=== PATIENT | male | born 1990 | race Caucasian/White ===

== ENCOUNTER 2018-08-14 18:03 | Emergency (ER) | payer OTHER ==
[2018-08-14 18:07] VITALS: BP 138/87
[2018-08-14] MEDS ORDERED: TDAP ADULT 0.5 ML INJ (BOOSTRIX) IM ONE (18:15)
--- NOTE | 2018-08-14 18:39 | EDPHY ---
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 PHYSICAL EXAM (Prior to examination, patient consented to physical exam, hands were washed and my usual and customary physical exam procedures followed) 1) GENERAL: Well-developed, well-nourished, alert and oriented. Appears to be in no acute distress. 2) HEAD: Normocephalic 3) HEENT: sclera anicteric 4) LUNGS: Breathing comfortably. 5) SKIN: Left middle finger distal phalanx skin avulsion with slow capillary like bleed. 6) MUSCULOSKELETAL: FDP FDS intact. Extensor function intact. 7) NEUROLOGIC: Full sensation two-point discrimination intact (Remi Umanzor) Constitutional: Initial Vital Signs Temperature (C) 37.0 C 08/14/18 18:05 Heart Rate 90 08/14/18 18:05 Respiratory Rate 16 08/14/18 18:05 Blood Pressure 138/87 H 08/14/18 18:05 O2 Sat (%) 97 08/14/18 18:05 O2 Delivery Mode Room Air Allergies/Adverse Reactions: No Known Allergies Allergy (Unverified 08/14/18 18:05) Home Medications: Medication Instructions Recorded Cephalexin [Keflex] 500 mg PO TID 5 Days cap 08/14/18 MDM/Departure - MDM Procedures: Procedure: Wound management I explained the indications, risks and benefits for both laceration repair and anesthetic administration. Verbal consent was obtained from the patient and parent. The left middle digit was anesthetized using 0.5% bupivicaine without epinephrine digital nerve block. After anesthetic administered the patient was observed for a period of time and had no apparent adverse effects. The wound was cleaned, dressed with Surgicel dressing resulting in hemostasis. Patient tolerated procedure well (Remi mUanzor Mikki) Medications Given: Discontinued Medications Diphtheria/Tetanus/Acell Pertussis (Boostrix) 0.5 ml IM .ONCE ONE Stop: 08/14/18 18:16 Last Admin: 08/14/18 18:19 Dose: 0.5 ml ED Course/Re-evaluation: Tetanus has been updated in the ER. Wound cleansed and dressed with Surgicel. Starting him on prophylactic antibiotics. I do not think that imaging indicated as this is a superficial skin avulsion. Doubt osseous involvement. Given usual and customary wound precautions instructions. I saw this patient independently based on established practice protocols. Care of patient under supervision of secondary supervising physician Dr Barbour . (Noé,Remi Mikki) I did not see this patient while he was in the emergency department. However his care was discussed with the PA while the patient was in the department. Agree with treatment plan and management (Arvind Barbour) - Depart Disposition: Home, Routine, Self-Care Clinical Impression: Avulsion of skin of finger Condition: Good Instructions: Skin Avulsion (ED) Additional Instructions: Return to the ER if you develop redness, swelling, discharge, warmth to the wound, red streaks going up your arm or any other symptoms that concern you. Stand Alone Forms: Work Excuse Prescriptions: Cephalexin [Keflex] 500 mg PO TID 5 Days cap Referrals: Follow-up, with your work comp provider in 2 days [Other] - As per Instructions
== END 2018-08-14 18:57 | disposition home or self-care (01) ==
DX: S61.213A Laceration without foreign body of left middle finger without damage to nail, initial encounter (principal); W26.0XXA Contact with knife, initial encounter; Y92.511 Restaurant or cafe as the place of occurrence of the external cause; Y93.G1 Activity, food preparation and clean up; Z23 Encounter for immunization; Y99.0 Civilian activity done for income or pay

== ENCOUNTER 2019-01-13 06:05 | Emergency (ER) | payer SELFPAY ==
--- NOTE | 2019-01-13 06:31 | EDPHY ---
H & P Stated Complaint: generalized weakness, blurry vision - Personal History Current Tetanus/Diphtheria Vaccine: Yes Current Tetanus Diphtheria and Acellular Pertussis (TDAP): Yes - Medical/Surgical History Hx Asthma: No Hx Chronic Respiratory Disease: No Hx Diabetes: No Hx Cardiac Disease: No Hx Renal Disease: No Hx Cirrhosis: No Hx Alcoholism: No Hx HIV/AIDS: No Hx Splenectomy or Spleen Trauma: No Other PMH: anxiety. hydrocele - Social History Smoking Status: Never smoked Time Seen by Provider: 01/13/19 06:11 HPI/ROS: Chief Complaint: Blurry vision HPI: 28-year-old healthy male presenting this morning complaining of blurry vision. Patient states he woke up this morning and had a hard time seeing his reflection in the mirror. Vision is very blurry. Does admit to drinking several beers last night but this is not unusual for him. Denies any falls or injuries. Vision is the same in both eyes. Has had some increased thirst and urination for the last several months. States he has been having increasing thirst and urination for the last couple months. Patient states he drinks a lot a water at work. Gets up a couple times at night. Has not noticed any weight loss or weight gain. Did wake up in a sweat this morning. Has a mild headache. No fevers or chills. No cough. Did use MDMA 2 days ago. ROS: 10 systems were reviewed and were negative except those elements noted in the HPI. PMH: Denies Social History: Positive smoking, positive alcohol, occasional marijuana, occasional MDMA Family History: non-contributory Physical Exam: Gen: Awake, Alert, No Distress HEENT: Nose: no rhinorrhea Eyes: PERRLA, pupils are dilated to 8 mm. Visual acuity at 4 ft is 20/50 bilaterally Mouth: Moist mucosa Neck: Supple, no JVD Chest: nontender, lungs clear to auscultation Heart: S1, S2 normal, no murmur Abd: Soft, non-tender, no guarding Back: no CVA tenderness, no midline tenderness Ext: no edema, non-tender Skin: no rash Neuro: CN II-XII intact, Sensation grossly intact, Strength 5/5 in bilateral upper and lower extremities (Stanley Orourke) Constitutional: Initial Vital Signs Temperature (C) 37.0 C 01/13/19 06:10 Heart Rate 97 01/13/19 06:10 Respiratory Rate 16 01/13/19 06:10 Blood Pressure 163/111 H 01/13/19 06:10 O2 Sat (%) 97 01/13/19 06:10 O2 Delivery Mode Room Air Allergies/Adverse Reactions: No Known Allergies Allergy (Unverified 01/13/19 06:10) Home Medications: Medication Instructions Recorded Cephalexin [Keflex] 500 mg PO TID 5 Days cap 08/14/18 Medical Decision Making ED Course/Re-evaluation: Assumed care at 7:00 a.m.. Patient's vision is 50/20 in each eye, 40/20 in both eyes. He is not in any pain. His eyes are obviously dilated. They are minimally reactive to bright light. No fluorescein uptake. New David-Pen pressure measurements of 14 on the left and 11 on right. He volunteers multiple times that he has not used drugs in about a week. He cannot think of any type of sepsis or chemical that he got to his eye. Is blurry vision seems obviously to be secondary to his pupillary dilatation. This seems most likely to be secondary to some type of mydriatic that he has ingested or been exposed to. Will Have him follow up with Ophthalmology. I consulted Ophthalmology who consulted there calling aches. They suspect also that this is chemical. Does not seem neurologic based on the patient's history and physical. He has no deficits on exam. It is bilateral. He will follow-up in their office in the next day or 2. The patient is very eager to go home. He is taking out his own IV. (Oren Long) Differential Diagnosis: Partial list of the Differential diagnosis considered include but were not limited to; blurry vision, pupillary dilatation, substance abuse, exposure and although unlikely based on the history and physical exam, I also considered aneurysm, dissection, migraine, iritis, abrasion. I discussed these differential diagnoses and the plan with the patient as well as the usual and expected course. The patient understands that the diagnosis is provisional and that in medicine we are not always correct and that further workup is often warranted. Usual and customary warnings were given. All of the patient's questions were answered. The patient was instructed to return to the emergency department should the symptoms at all worsen or return, otherwise to followup with the physician as we discussed. (Oren Long) - Data Points Laboratory Results: Laboratory Results 01/13/19 06:30 01/13/19 06:30 01/13/19 01/13/19 01/13/19 06:30 06:30 06:26 WBC 6.40 10^3/uL 10^3/uL (3.80-9.50) RBC 4.81 10^6/uL 10^6/uL (4.40-6.38) Hgb 16.1 g/dL g/dL (13.7-17.5) Hct 45.7 % % (40.0-51.0) MCV 95.0 fL fL (81.5-99.8) MCH 33.5 pg pg (27.9-34.1) MCHC 35.2 g/dL g/dL (32.4-36.7) RDW 11.8 % % (11.5-15.2) Plt Count 236 10^3/uL 10^3/uL (150-400) MPV 9.9 fL fL (8.7-11.7) Neut % (Auto) 72.4 % % (39.3-74.2) Lymph % (Auto) 19.8 % % (15.0-45.0) Wells % (Auto) 5.8 % % (4.5-13.0) Eos % (Auto) 1.3 % % (0.6-7.6) Baso % (Auto) 0.5 % % (0.3-1.7) Nucleat RBC Rel Count 0.0 % % (0.0-0.2) Absolute Neuts (auto) 4.64 10^3/uL 10^3/uL (1.70-6.50) Absolute Lymphs (auto) 1.27 10^3/uL 10^3/uL (1.00-3.00) Absolute Monos (auto) 0.37 10^3/uL 10^3/uL (0.30-0.80) Absolute Eos (auto) 0.08 10^3/uL 10^3/uL (0.03-0.40) Absolute Basos (auto) 0.03 10^3/uL 10^3/uL (0.02-0.10) Absolute Nucleated RBC 0.00 10^3/uL 10^3/uL (0-0.01) Immature Gran % 0.2 % % (0.0-1.1) Immature Gran # 0.01 10^3/uL 10^3/uL (0.00-0.10) Sodium 141 mEq/L mEq/L (135-145) Potassium 4.3 mEq/L mEq/L (3.5-5.2) Chloride 109 mEq/L mEq/L (97-110) Carbon Dioxide 21 mEq/l L mEq/l (22-31) Anion Gap 11 mEq/L mEq/L (6-14) BUN 11 mg/dL mg/dL (7-23) Creatinine 1.0 mg/dL mg/dL (0.7-1.3) Estimated GFR > 60 Glucose 107 mg/dL H mg/dL (70-100) POC Glucose 115 mg/dL H mg/dL (70-100) Calcium 9.3 mg/dL mg/dL (8.5-10.4) Medications Given: Discontinued Medications Fluorescein Sodium (Bioglo) 1 mg OP EDNOW ONE Stop: 01/13/19 07:18 Last Admin: 01/13/19 07:40 Dose: 1 mg Proparacaine HCl (Alcaine 0.5%) 1 drops EACHEYE ONCE ONE Stop: 01/13/19 07:17 Last Admin: 01/13/19 07:40 Dose: 1 drop Point of Care Test Results: Chemistry 01/13/19 06:26 POC Glucose 115 mg/dL H mg/dL (70-100) Departure - Departure Disposition: Home, Routine, Self-Care Clinical Impression: Pupillary dilation Condition: Good Instructions: Blurred Vision (ED) Referrals: NONE *PRIMARY CARE P,. [Primary Care Provider] - As per Instructions Evelyn Harry MD [Medical Doctor] - 1-2 days without fail
[2019-01-13 06:42] LABS: PLATELET COUNT 236 10^3/uL (150-400)
[2019-01-13] MEDS ORDERED: FLUORESCEIN SODIUM 1 MG STRIP OP ONE ×2 (07:10→07:17)
[2019-01-13] MEDS ORDERED: PROPARACAINE 0.5% 15 ML OPHT DROP ONE (07:10)
[2019-01-13] MEDS ORDERED: PROPARACAINE 0.5% 15 ML OPHT DROP EACHEYE ONE (07:16)
[2019-01-13 07:42] VITALS: BP 136/87
== END 2019-01-13 07:42 | disposition home or self-care (01) ==
DX: H57.09 Other anomalies of pupillary function (principal)